=== PATIENT | female | born 1975 | race Caucasian/White ===

== ENCOUNTER → 2018-10-14 | Outpatient (CLI) | payer OTHER | LOC: COL.PUL 10-08 13:00 | DX: R06.02 Shortness of breath (principal) | CPT/HCPCS: J7674 ==

== ENCOUNTER → 2020-06-30 | Outpatient (CLI) | payer OTHER | LOC: ZCOL.LAB 23:58 | DX: J32.9 Chronic sinusitis, unspecified (principal) ==